=== PATIENT | male | born 1980 | race Native Hawaiian/Other Pacific Islander ===

== ENCOUNTER → 2020-10-13 | Outpatient (CLI) | payer BC ==
--- NOTE | 2020-10-14 09:02 | US ---
EXAM DESCRIPTION: Soft Tissue,Abdomen: ULTRASOUND. CLINICAL HISTORY: 40 years Male INGUINAL HERNIA COMPARISON: None Available. TECHNIQUE: Transcutaneous scanning: Aguilera-scale and Doppler modes. FINDINGS: Large fluid collection with homogeneous hypoechoic echoes in the right inguinal canal consistent with the area of palpation. Nonvascular. No hernia. No dominant solid mass, no distinct cyst, no large calcifications. IMPRESSION: Homogeneous hypoechoic fluid collection with debris in the right inguinal canal, but no bowel, and no hernia defect. Electronically signed by: Carlos Bae MD 10/14/2020 9:01 AM [facility]
== END ==
LOC: US 08:13
PROVIDERS: ATTEND Family Medicine
DX: N50.89 Other specified disorders of the male genital organs (principal)